=== PATIENT | female | born 1970 | race Caucasian/White ===

== ENCOUNTER 2017-11-23 23:02 | Emergency (ER) | payer OTHER ==
[2017-11-23] MEDS ORDERED: IBUPROFEN 600 MG TABLET PO ONE (23:08)
--- NOTE | 2017-11-23 23:10 | Emergency Department Record ---
History of Present Illness - General Chief Complaint: Ankle/Foot Injury Stated Complaint: TOE/FOOT INJURY Time Seen by Provider: 11/23/17 23:08 Source: Patient, Family Mode of Arrival: Ambulatory Limitations: No limitations - History of Present Illness Initial Comments: 46 yo female presents with a left foot/toe injury. She injured the toes around 11am. She was walking without putting her glasses on and stubbed her foot. She has some swelling and bruising over the 2nd and 3rd toes. Nails are intact. Complaint: Foot injury -: Hour(s) (12) Injury: Foot: Left, Toes: Left Type of Injury: Blunt Place: Home Severity: Moderate Improves With: Immobilization Worsens With: Movement, Palpation Context: Direct blow Associated Symptoms: Able to partially bear weight - Related Data Home Medications Medication Instructions Recorded Confirmed Last Taken Levothyroxine Sodium [Synthroid] 100 mcg PO DAILY 11/23/17 11/23/17 Unknown Previous Rx's Medication Instructions Recorded Ibuprofen [Motrin 600Mg] 600 mg PO Q6H #20 tablet 11/23/17 Allergies Allergy/AdvReac Type Severity Reaction Status Date / Time codeine Allergy HIVES Verified 11/23/17 23:18 divalproex sodium Allergy HIVES Verified 11/23/17 23:18 [From Depakote] erythromycin base Allergy HIVES Verified 11/23/17 23:18 hydrocodone Allergy HIVES Verified 11/23/17 23:18 hydromorphone [From Dilaudid] Allergy HIVES Verified 11/23/17 23:18 morphine Allergy HIVES Verified 11/23/17 23:18 Review of Systems Constitutional: Denies: Chills, Fever, Malaise, Weakness Eyes: Denies: Eye discharge ENT: Denies: Congestion, Throat pain Respiratory: Denies: Cough Cardiovascular: Denies: Chest pain Endocrine: Denies: Fatigue Gastrointestinal: Denies: Abdominal pain, Diarrhea, Nausea, Vomiting Genitourinary: Denies: Dysuria, Urgency Musculoskeletal: Reports: As per HPI, Arthralgia, Joint swelling Skin: Reports: As per HPI, Bruising. Denies: Change in color, Rash Neurological: Denies: Confusion, Headache Psychiatric: Denies: Anxiety Hematological/Lymphatic: Denies: Blood Clots, Easy bleeding, Easy bruising, Swollen glands Physical Exam - General General Appearance: Alert, Oriented x3, Cooperative, No acute distress Limitations: No limitations - Head Head exam: Atraumatic, Normal inspection - Eye Eye exam: Normal appearance - ENT ENT exam: Normal exam Ear exam: Normal external inspection Nasal Exam: Normal inspection Mouth exam: Normal external inspection Teeth exam: Normal inspection - Neck Neck exam: Normal inspection - Cardiovascular Peripheral Pulses: 2+: Dorsalis Pedis (L) - Rectal Rectal exam: Deferred - exam: Deferred - Extremities Extremities exam: Full ROM, Joint swelling, Normal capillary refill, Tenderness. negative: Normal inspection Image of Feet: 1 - tenderness and mild swelling, intact nail, brisk CR, no gross deformity. - Back Back exam: Reports: Full ROM - Neurological Neurological exam: Alert, Normal gait, Oriented X3, Reflexes normal - Psychiatric Psychiatric exam: Normal affect, Normal mood - Skin Skin exam: Dry, Intact, Normal color, Warm Course - Reevaluation(s) Reevaluation #1: 11/23/17 23:25 XR of the left foot ordered 11/23/17 23:43 The XR was reviewed. Questionable ND distal phalanx fracture of the 2nd and 3rd toes She has pain into the mid foot and will be supported with a DonJoy and Crutches Disposition Disposition: Discharge Clinical Impression: Contusion, foot Qualifiers: Encounter type: initial encounter Laterality: left Qualified Code(s): S90.32XA - Contusion of left foot, initial encounter Disposition: Home, Self-Care Condition: (1) Good Instructions: Foot Contusion (ED) Additional Instructions: Ice and elevate to minimize swelling Follow up in the next week with your doctor for a recheck Use the boot and crutches for support and protection Prescriptions: Ibuprofen [Motrin 600Mg] 600 mg PO Q6H #20 tablet Forms: Patient Portal Access Time of Disposition: 23:44 Quality - Quality Measures Quality Measures: N/A - Blood Pressure Screening Does Patient Have Any of the Following: No Blood Pressure Classification: Normal BP Reading Systolic Measurement: 109 Diastolic Measurement: 66 Screening for High Blood Pressure: < Normal BP, F/U Not Required > [G8783]
--- NOTE | 2017-11-24 12:51 | RADIOLOGY REPORT ---
DATE: 11/24/2017. EXAM: LEFT FOOT, THREE VIEWS. HISTORY: Third digit pain and contusion from kicking injury. TECHNIQUE: Three views of the left foot were obtained. FINDINGS: On lateral view there is a tiny calcification along the dorsal aspect of the second distal phalanx, probably sequela of remote trauma; though correlate for point tenderness to exclude fracture. Otherwise no acute osseous abnormality is seen. Soft tissues are unremarkable. IMPRESSION: POSSIBLE DORSAL AVULSIVE FRACTURE ALONG THE SECOND DISTAL PHALANGEAL BASE SEEN ON LATERAL VIEW. THIS MAY BE CHRONIC. CORRELATE FOR POINT TENDERNESS. JOB NUMBER: [id number] MTDD
== END 2017-11-24 00:07 | disposition home or self-care (01) ==
LOC: ER 23:02
DX: S90.32XA Contusion of left foot, initial encounter (principal); W22.8XXA Striking against or struck by other objects, initial encounter; Y92.009 Unspecified place in unspecified non-institutional (private) residence as the place of occurrence of the external cause
CPT/HCPCS: 99283

== ENCOUNTER 2017-12-12 10:13 | Emergency (ER) | payer OTHER ==
--- NOTE | 2017-12-12 10:33 | Emergency Department Record ---
History of Present Illness - General Chief complaint: Pain Stated complaint: LEFT RIB PAIN/FALL Time Seen by Provider: 12/12/17 10:25 Source: Patient Mode of Arrival: Ambulatory Limitations: No limitations - History of Present Illness Initial comments: The patient is here due to L rib pain for 8 hours. She slipped and fell this AM and landed on her L ribs. Since she has had pain to the L ribs. There is no fever, cough, AP or any anterior chest pain. The patient is concerned she may have a broken rib. MD Complaint: Other Onset/Timin -: Hour(s) Location: Left, Other History of Same: No Radiation: None Severity scale (1-10): 9 Quality: Sharp Consistency: Constant Improves with: Immobilization Worsens with: Exertion Associated Symptoms: Denies other symptoms - Related Data Previous Rx's Medication Instructions Recorded Naproxen [Naprosyn] 250 mg PO BID #14 tablet 12/12/17 Allergies Allergy/AdvReac Type Severity Reaction Status Date / Time codeine Allergy HIVES Verified 11/23/17 23:18 divalproex sodium Allergy HIVES Verified 11/23/17 23:18 [From Depakote] erythromycin base Allergy HIVES Verified 11/23/17 23:18 hydrocodone Allergy HIVES Verified 11/23/17 23:18 hydromorphone [From Dilaudid] Allergy HIVES Verified 11/23/17 23:18 morphine Allergy HIVES Verified 11/23/17 23:18 Travel Screening - Travel/Exposure Within Last 30 Days Have you traveled within the last 30 days?: No Review of Systems Constitutional: Denies: Chills, Fever Eyes: Denies: Eye discharge ENT: Denies: Congestion Respiratory: Denies: Cough, Dyspnea Past Medical History - SOCIAL HISTORY Smoking Status: Current every day smoker Alcohol Use: None Drug Use: None - RESPIRATORY Hx Respiratory Disorders: No - CARDIOVASCULAR Hx Cardio Disorders: Yes Comment:: "hypotension" - NEURO Hx Neuro Disorders: No - GI Hx GI Disorders: No - Hx Genitourinary Disorders: No - ENDOCRINE Hx Endocrine Disorders: Yes Hx Diabetes: (Low) Hx Thyroid Disease: Yes (Radioactive iodine-04/2017) - MUSCULOSKELETAL Hx Musculoskeletal Disorders: No - PSYCH Hx Psych Problems: No - HEMATOLOGY/ONCOLOGY Hx Hematology/Oncology Disorders: No Family Medical History Any Significant Family History?: Yes Hx Cancer: Mother, Grandparents *Cancer Comment: Aunts/Uncles Hx Diabetes: Grandparents Hx Heart Disease: Mother Hx Resp Disorders: Grandparents Physical Exam - General General Appearance: Alert, Oriented x3, Cooperative, No acute distress - Head Head exam: Atraumatic - Eye Eye exam: Normal appearance, PERRL Pupils: Normal accommodation - Neck Neck exam: Normal inspection, Full ROM. negative: Tenderness - Respiratory Respiratory exam: Normal lung sounds bilaterally, Chest wall tenderness (There is tenderness to the L lateral ribs to palpation. There is no bruising, swelling , redness or crepitance appreciated.). negative: Respiratory distress - Cardiovascular Cardiovascular Exam: Regular rate, Normal rhythm, Normal heart sounds - GI/Abdominal GI/Abdominal exam: Soft, Normal bowel sounds. negative: Tenderness - Extremities Extremities exam: Normal inspection, Full ROM, Normal capillary refill. negative: Tenderness Image of Full Body: 1 - Area of pain and tenderness. Course Vital Signs 12/12/17 10:15 Temperature 97.7 F Pulse Rate 81 Respiratory 20 Rate Blood Pressure 116/73 Pulse Ox 95 - Reevaluation(s) Reevaluation #1: The patient is doing very well at this time. Her pain is much improved and she is ready for home. 12/12/17 11:49 Medical Decision Making - Data Complexity MDM Data: X-Ray Ordered and/or Reviewed - Radiology Data Radiology results: Report reviewed (L ribs: No acute fx's, old L 6-9 fx's.) Disposition Disposition: Discharge Clinical Impression: Contusion of rib on left side Qualifiers: Encounter type: initial encounter Qualified Code(s): S20.212A - Contusion of left front wall of thorax, initial encounter Disposition: Home, Self-Care Condition: (2) Stable Instructions: Rib Contusion (ED) Additional Instructions: The patient is to rest when possible and take the Naprosyn for pain. Please see your PCP for recheck in 5 days if not better and return to the ER for any worsening symptoms. The patient has no work restrictions. Prescriptions: Naproxen [Naprosyn] 250 mg PO BID #14 tablet Forms: Patient Portal Access Time of Disposition: 11:52 Quality - Quality Measures Quality Measures: N/A - Blood Pressure Screening View Details: Yes Does Patient Have Any of the Following: No Blood Pressure Classification: Normal BP Reading Systolic Measurement: 116 Diastolic Measurement: 73 Screening for High Blood Pressure: < Normal BP, F/U Not Required > [G8783]
[2017-12-12] MEDS: KETOROLAC 30 MG/ML VIAL IM ONE (10:47)
--- NOTE | 2017-12-13 10:12 | RADIOLOGY REPORT ---
EXAM: LEFT RIB SERIES WITH CHEST HISTORY: PATIENT FELL THIS MORNING WITH LEFT POSTERIOR RIB PAIN. HISTORY OF OLD LEFT RIB FRACTURES FROM 2005. TECHNIQUE: AP and oblique views of the left ribs and a PA view of the chest were obtained. Comparison: None. Encounter: Initial. FINDINGS: There are old left rib fractures involving the posterolateral aspects of the left sixth through eighth and probably also ninth ribs. No definite acute left rib fracture identified. No pleural effusion or pneumothorax evident. Numerous coiled wire densities are seen overlying the lower thoracic and upper lumbar spine which may be related to an abdominal wall hernia repair and clinical correlation is suggested. IMPRESSION: 1. MULTIPLE OLD LEFT RIB FRACTURES. 2. NO DEFINITE ACUTE LEFT RIB FRACTURE OR PNEUMOTHORAX EVIDENT. JOB NUMBER: [id number] MTDD
== END 2017-12-12 11:57 | disposition home or self-care (01) ==
LOC: ER 10:13
DX: S20.212A Contusion of left front wall of thorax, initial encounter (principal); W01.0XXA Fall on same level from slipping, tripping and stumbling without subsequent striking against object, initial encounter; F17.210 Nicotine dependence, cigarettes, uncomplicated
CPT/HCPCS: 96372; 99283; 99284; J1885